=== PATIENT | male | born 1965 | race Caucasian/White ===

== ENCOUNTER 2019-04-11 06:54 | Emergency (ER) | payer BC, OTHER ==
[~2019-04-11] VITALS: Ht 180.3 cm; Wt 94.0 kg
[2019-04-11 07:01] VITALS: BP 159/77
[2019-04-11] MEDS ORDERED: DIPHENHYDRAMINE 50 MG/ML, 1ML ONE (08:00)
[2019-04-11] MEDS ORDERED: KETOROLAC 30 MG/1 ML ONE (08:00)
[2019-04-11] MEDS ORDERED: DIPHENHYDRAMINE 50 MG/ML, 1ML IVPush ONE (08:00)
[2019-04-11] MEDS ORDERED: KETOROLAC 30 MG/1 ML IVPush ONE (08:00)
[2019-04-11] MEDS ORDERED: ZIPRASIDONE 20 MG INJ IM ONE ×2 (08:09→09:00)
[2019-04-11 08:12] LABS: BASOPHILS # (AUTO) 0.03 x10^3/uL (0-0.1); BASOPHILS % (AUTO) 0 % (0-1); EOSINOPHILS % (AUTO) 0 % (1-7); LYMPHOCYTES # (AUTO) 1.39 x10^3/uL (1-3.4); LYMPHOCYTES % (AUTO) 11 % (22-44); MD NO; MEAN CORPUSCULAR HEMOGLOBIN 30.1 pg (27.5-34.5); MONOCYTES # (AUTO) 0.46 x10^3/uL (0.2-0.8); MONOCYTES % (AUTO) 4 % (2-9); NEUTROPHILS # (AUTO) 10.29 x10^3/uL (1.8-6.8); NEUTROPHILS % (AUTO) 85 % (42-75); PLATELET COUNT 214 x10^3/uL (130-400); RED BLOOD COUNT 5.33 x10^6/uL (4.38-5.82)
[2019-04-11 08:25] LABS: ALBUMIN 4.6 g/dL (3.4-5.0); ANION GAP 9 mmol/L (5-15); CALCIUM 9.3 mg/dL (8.5-10.1); CHLORIDE 103 mmol/L (98-107)
[2019-04-11 08:30] LABS: ALANINE AMINOTRANSFERASE 29 U/L (12-78); ALKALINE PHOSPHATASE 81 U/L (45-117); BILIRUBIN,TOTAL 0.9 mg/dL (0.2-1.0); CREATININE 1.18 mg/dL (0.7-1.3); TOTAL PROTEIN 8.3 g/dL (6.4-8.2)
[2019-04-11] MEDS ORDERED: SODIUM CHLORIDE FLUSH 10ML SYR IVF ONE (09:00)
--- NOTE | 2019-04-11 09:53 | NUR ---
PT STATED HE WANTS TO GO HOME AND IS FEELING BETTER, WANTS IV OUT. PT SIGNED AMA FORM AND UNDERSTANDS THAT HE MAY RETURN AT ANYTIME. IV DISCHARGE. PT AMBULATORY OUT
== END 2019-04-11 09:56 | disposition left against medical advice (07) ==
LOC: ED 08:21
DX: R10.84 Generalized abdominal pain (principal); R11.2 Nausea with vomiting, unspecified
CPT/HCPCS: 36415; 80053; 83690; 85025; 93005; 96372; 96374; 96375; 99284; J1200; J1885; J3486